=== PATIENT | female | born 1955 | race American Indian/Alaskan Native ===

== ENCOUNTER 2019-09-06 14:45 | Emergency (ER) | payer OTHER ==
[2019-09-06 15:05] VITALS: BP 183/103
[2019-09-06 15:40] LABS: Bacteria,Urine 1+ /HPF (Negative); Bilirubin,Urine NEG (Negative); Blood,Urine NEG (Negative); Color,Urine Yellow (Yellow); Mucus,Urine FEW /HPF; Urobilinogen,Urine < 2.0 mg/dL (<2.0)
--- NOTE | 2019-09-06 17:07 | Emergency Department Report ---
ED Female HPI - General Chief complaint: Urogenital-Female Stated complaint: URINE ISSUES Time Seen by Provider: 09/06/19 17:00 Source: patient Mode of arrival: Ambulatory Limitations: No Limitations - History of Present Illness Initial comments: Ms. Alegre is a 63-year-old female with history of diabetes mellitus, hypertension, colon cancer in remission who presents with foul-smelling urine. She denies dysuria. She denies urinary frequency. She denies fever. She denies vomiting. She denies vaginal discharge. MD Complaint: other (foul-smelling urine) -: Gradual, days(s) (2) Severity: mild Consistency: constant Improves with: none Worsens with: none - Related Data Previous Rx's Medication Instructions Recorded Last Taken Type Ibuprofen [Motrin 800 MG tab] 800 mg PO Q8HR PRN #15 tablet 09/06/19 Unknown Rx cephALEXin [Keflex] 500 mg PO QID #20 capsule 09/06/19 Unknown Rx Allergies Allergy/AdvReac Type Severity Reaction Status Date / Time No Known Allergies Allergy Unverified 09/06/19 15:05 ED Review of Systems ROS: Stated complaint: URINE ISSUES Other details as noted in HPI Comment: All other systems reviewed and negative Constitutional: denies: chills, fever, malaise Respiratory: denies: cough, shortness of breath Cardiovascular: denies: chest pain Gastrointestinal: denies: abdominal pain, nausea, vomiting Genitourinary: denies: urgency, dysuria, hematuria, discharge Skin: denies: rash Neurological: denies: as per HPI, headache ED Past Medical Hx - Past Medical History Previous Medical History?: Yes Hx Hypertension: Yes Hx Diabetes: Yes Hx of Cancer: Yes - Surgical History Past Surgical History?: Yes Additional Surgical History: colon surgery for CA, hysterectomy - Social History Smoking Status: Never Smoker Substance Use Type: None - Medications Home Medications: Home Medications Medication Instructions Recorded Confirmed Last Taken Type Ibuprofen [Motrin 800 MG tab] 800 mg PO Q8HR PRN #15 tablet 09/06/19 Unknown Rx cephALEXin [Keflex] 500 mg PO QID #20 capsule 09/06/19 Unknown Rx ED Physical Exam - General Limitations: No Limitations General appearance: alert, in no apparent distress - Head Head exam: Present: atraumatic, normocephalic - Eye Eye exam: Present: normal appearance - ENT ENT exam: Present: mucous membranes moist - Neck Neck exam: Present: normal inspection, full ROM - Respiratory Respiratory exam: Present: normal lung sounds bilaterally. Absent: respiratory distress - Cardiovascular Cardiovascular Exam: Present: regular rate, normal rhythm. Absent: systolic murmur, diastolic murmur, rubs, gallop - GI/Abdominal GI/Abdominal exam: Present: soft, normal bowel sounds. Absent: distended, tenderness, guarding, rebound - Extremities Exam Extremities exam: Present: normal inspection - Back Exam Back exam: Present: normal inspection - Neurological Exam Neurological exam: Present: alert, oriented X3 - Psychiatric Psychiatric exam: Present: normal affect, normal mood - Skin Skin exam: Present: warm, dry, intact, normal color. Absent: rash ED Course Vital Signs 09/06/19 15:02 Temperature 98.4 F Pulse Rate 85 Respiratory 16 Rate Blood Pressure 183/103 O2 Sat by Pulse 97 Oximetry ED Medical Decision Making - Lab Data Laboratory Results - last 24 hr 09/06/19 15:15 Urine Color Yellow Urine Turbidity Slightly-cloudy Urine pH 5.0 Ur Specific [place] 1.020 Urine Protein 30 mg/dl Urine Glucose (UA) Neg Urine Ketones Neg Urine Blood Neg Urine Nitrite Neg Urine Bilirubin Neg Urine Urobilinogen < 2.0 Ur Leukocyte Esterase Tr Urine WBC (Auto) 17.0 H Urine RBC (Auto) 2.0 U Epithel Cells (Auto) 6.0 Urine Bacteria (Auto) 1+ Urine Mucus Few - Medical Decision Making UTI symptom with equivocal results revealed on urinalysis which appear to be contaminated. Prescribed cephalexin Critical care attestation.: If time is entered above; I have spent that time in minutes in the direct care of this critically ill patient, excluding procedure time. ED Disposition Clinical Impression: UTI (urinary tract infection) Disposition: DC-01 TO HOME OR SELFCARE Is pt being admited?: No Does the pt Need Aspirin: No Condition: Stable Instructions: Urinary Tract Infection in Women (ED) Prescriptions: cephALEXin [Keflex] 500 mg PO QID #20 capsule Ibuprofen [Motrin 800 MG tab] 800 mg PO Q8HR PRN #15 tablet PRN Reason: Pain , Severe (7-10) Referrals: [facility] [Outside] - as needed Forms: Work/School Release Form(ED)
== END 2019-09-06 18:18 | disposition home or self-care (01) ==
LOC: ED 14:45
DX: N39.0 Urinary tract infection, site not specified (principal); I10 Essential (primary) hypertension; E11.9 Type 2 diabetes mellitus without complications; Z90.710 Acquired absence of both cervix and uterus; Z98.890 Other specified postprocedural states; Z79.899 Other long term (current) drug therapy
CPT/HCPCS: 81001; 87086

== ENCOUNTER 2021-12-18 14:51 | Outpatient (CLI) | payer MEDICARE ==
--- NOTE | 2021-12-18 16:09 | XRay Report ---
Right shoulder-3 views INDICATION: RIGHT SHOULDER PAIN. COMPARISON: None available. IMPRESSION: No acute osseous abnormality. Normal alignment. Moderate AC DJD. Soft tissues are unre markable. Signer Name: Joshua Ashby MD Signed: 12/18/2021 4:05 PM Workstation Name: [id number]
== END 2021-12-18 14:52 | disposition home or self-care (01) ==
LOC: XRAY 14:51
PROVIDERS: ATTEND Internal Medicine
DX: M25.511 Pain in right shoulder (principal)